=== PATIENT | female | born 1970 | race Two or more races ===

== ENCOUNTER → 2017-03-17 | Outpatient (CLI) | payer OTHER ==
--- NOTE | ~2017-03-17 | CR217 ---
[facility] A Service of [facility] RADIOLOGY TEXT RESULTS PATIENT: IVANA SCHWARZ LOCATION: [facility] : 74 UNIT #: [id number] AGE: [address]: Tere Rai APRN SEX: F ORDER DR: [id number] [facility] [address] [place], [place] [address] [id number] O MR#: [id number] Acc #: [id number] NAME: IVANA SCHWARZ : 1970 SEX: F STUDY DATE/TIME: 03/17/2017 11:32 UNIT: [facility] ROOM: STUDY DESCRIPTION: CR Sacroiliac Joint 3 + Views Attending Physician: Tere Rai A.P.R.N. Referring Physician: Tere Rai A.P.R.N. Ordering Physician: Tere Rai A.P.R.N. Primary Care Physician: Tere Rai A.P.R.N. MEDICAL IMAGING REPORT This report is preliminary unless electronic signature is present EXAM Bilateral sacroiliac joint series 3 views 03/17/2017 HISTORY Back pain for 5 weeks. FINDINGS Normal. Dictated by... Xavier Bryson M.D. THIS IS AN ELECTRONICALLY VERIFIED REPORT Xavier Bryson M.D. at 03/23/2017 10:36 AM ERNESTINE/blanquita TD: 03/17/2017 16:37 JOB #: [id number] MEDICAL IMAGING REPORT Page 1 of 1 COPY
--- NOTE | ~2017-03-17 | CR184 ---
[facility] A Service of [facility] & [facility] RADIOLOGY TEXT RESULTS PATIENT: IVANA SCHWARZ LOCATION: [facility] : 74 UNIT #: [id number] AGE: [address]: Tere Rai APRN SEX: F ORDER DR: [id number] [facility] [address] [place], [place] [address] [id number] O MR#: [id number] Acc #: [id number] NAME: IVANA SCHWARZ : 1970 SEX: F STUDY DATE/TIME: 03/17/2017 11:31 UNIT: [facility] ROOM: STUDY DESCRIPTION: CR Lumbar Spine Min 4 Views Attending Physician: Tere Rai A.P.R.N. Referring Physician: Tere Rai A.P.R.N. Ordering Physician: Tere Rai A.P.R.N. Primary Care Physician: Tere Rai A.P.R.N. MEDICAL IMAGING REPORT This report is preliminary unless electronic signature is present EXAM Lumbar spine series in 5 views 03/17/2017 CLINICAL HISTORY Low back and right posterior leg pain for 5 weeks. FINDINGS There is a slight retrolisthesis at L4-5 and a grade 1 anterolisthesis at L5-S1. There appear to probably be bilateral L5 pars defects. There is no other evidence of fracture and there is no bone erosion or destruction. IMPRESSION Discogenic change most prominent at 5-1, grade 1 anterolisthesis at 5-1 with probable bilateral pars defects. See above for additional details. Dictated by... Xavier Bryson M.D. THIS IS AN ELECTRONICALLY VERIFIED REPORT Xavier Bryson M.D. at 03/23/2017 10:36 AM ERNESTINE/blanquita TD: 03/17/2017 16:34 JOB #: [id number] MEDICAL IMAGING REPORT Page 1 of 1 COPY
== END | disposition home or self-care (01) ==
LOC: CRAD 10:46
DX: M54.5 Low back pain (principal); M43.16 Spondylolisthesis, lumbar region
CPT/HCPCS: 72110; 72202